=== PATIENT | female | born 1985 | race Caucasian/White ===

== ENCOUNTER → 2017-09-01 | Outpatient (CLI) | payer OTHER ==
[~2017-09-01] MED LIST: ALBUTEROL0.09 MG/A1 INH; BENADRYL25 M1 PO; BIOTIN1 M1 PO; CARAFATE1 GM PO; CLINDAMYCIN HC150 MG PO; Effexor25 MG PO; FLONASE ALLERG9.9 ML NAS; MOTRIN100 M1 PO; PEPCID20 MG PO; PERCOCET 325 MG1 TA2 PO; PREDNICOT20 MG PO; PREDNISONE10 MG PO; PRILOSEC20 M1 PO; PROPRANOLOL HCL40 M1 PO; PROPRANOLOL HCL80 M3 PO; PROTONIX40 MG PO; PROZAC20 MG PO; REMERON15 M2 PO; REXULTI2 MG PO; ROBITUSSIN AC 110 ML PO; SINGULAIR10 MG PO; TOBREX OPHTH S2.5 ML OPH; VICODIN 500 MG-1 TAB PO; VISTARIL50 MG PO; VITAMIN D5000 I3 PO
== END | disposition home or self-care (01) ==
LOC: US 16:10
DX: R10.32 Left lower quadrant pain (principal); R10.2 Pelvic and perineal pain; Z90.710 Acquired absence of both cervix and uterus

== ENCOUNTER 2017-09-15 13:12 | Inpatient (IN) | payer OTHER ==
[~2017-09-15] VITALS: Ht 167.6 cm; Wt 58.5 kg
--- NOTE | ~2017-09-15 | O ---
[place], [place] OPERATIVE NOTE NAME: KATHIE DAUGHERTY UNIT #: [id number] ROOM: 426 DOCTOR: VIANNEY FRANCISCO MD BIRTHDATE: [birth year] DOS: 09/17/2017 HISTORY: This is a 32-year-old patient who presented with chief complaint of gastro-abdominal pain, dyspepsia, undergoing investigation. PAST MEDICAL HISTORY: Gastroesophageal reflux, migraine, cephalalgia, nicotine dependency, endometriosis. PAST SURGICAL HISTORY: Tonsillectomy, adenectomy, myringotomy, and hysterectomy. SOCIAL HISTORY: Smoker. Social alcohol consumer. FAMILY HISTORY: Noncontributory. ALLERGIES: PENICILLIN, LORAZEPAM. MEDICATIONS AT HOME: Reviewed. PROCEDURE: Today's procedure part of investigation is panendoscopy plus biopsy. PREMEDICATION: Versed and propofol. SCOPE: Olympus folding gastroscope REPORT: After putting the patient in left lateral position and application of lubricant to the scope, the scope was introduced. Thereafter under direct visualization, I advanced through the length of esophagus without difficulty. Esophagus, cervical, thoracic and distal within normal limits. Gastric pouch was entered. Gastritis was seen. Duodenal bulb, second and third part within normal limit. Antral biopsy obtained for H. pylori. The patient extubated, tolerated procedure well. IMPRESSION: Mild gastritis, status post biopsy. There are no acute findings in upper GI tract. PLAN AND DISCUSSION: This patient can be discharged on Protonix 40 mg daily and be advised to abstain from caffeinated beverages, alcoholic beverages and nicotine product. I have reviewed her CT scan of the abdomen and no acute pathology has been found in the abdomen with chemistries, CBC, labs and records all have been reviewed. The patient is going to be fed regular diet. [place], [place] OPERATIVE NOTE NAME: KATHIE DAUGHERTY UNIT #: [id number] ROOM: 426 DOCTOR: VIANNEY FRANCISCO MD BIRTHDATE: [birth year] VIANNEY FRANCISCO MD CM:OPRECORD:OPERATIVE NOTE 1418 [id number] VIANNEY FRANCISCO MD 09/17/17 1430 interface
[2017-09-15 13:13] VITALS: BP 145/90
[2017-09-15 14:06] LABS: BASO % 0.5 % (0.0-1.0); HEMATOCRIT 41.9 % (37.0-47.0); LYMPH # 1.4 10*3/uL (1.3-4.4); LYMPH % 21.4 % (27.0-41.0); MEAN CELL VOLUME 101.2 fl (81.0-99.0); MEAN CORPUSCULAR HGB 33.8 pg (27.0-31.0); MEAN CORPUSCULAR HGB CONC 33.4 g/dl (33.0-37.0); MEAN PLATELET VOLUME 10.2 fl (9.6-12.3); MONO # 0.3 10*3/uL (0.1-1.0); NEUT # 4.7 10*3/uL (2.3-7.9); NEUT % 73.8 % (47.0-73.0); PLATELET COUNT AUTOMATED 274 10*3/uL (130-400); RED BLOOD COUNT 4.14 10*6/uL (4.10-5.10); WHITE BLOOD COUNT 6.3 10*3/uL (4.8-10.8)
[2017-09-15 14:21] LABS: ALBUMIN 4.7 gm/dl (3.1-4.5); ALKALINE PHOSPHATASE 77 U/L (45-117); BUN 12 mg/dl (7-24); CHLORIDE 106 mmol/L (98-107); LIPASE 136 U/L (73-393); POTASSIUM 3.7 mmol/L (3.5-5.1); SGOT/AST 23 IU/L (3-35); SGPT/ALT 21 U/L (12-78); SODIUM 138 mmol/L (136-145); TOTAL PROTEIN 8.3 gm/dL (6.4-8.2)
[2017-09-15 14:24] LABS: BETA-HCG, QUANT < 1.0 mIU/mL (1-3)
[2017-09-15 14:24] LABS: BILIRUBIN NEGATIVE (NEGATIVE); BLOOD NEGATIVE (NEGATIVE); CLARITY SL CLOUDY (CLEAR); COLOR YELLOW (YELLOW); GLUCOSE NEGATIVE (NEGATIVE); KETONE NEGATIVE (NEGATIVE); LEUKO ESTERASE NEGATIVE (NEGATIVE); NITRITE NEGATIVE (NEGATIVE); SPECIFIC GRAVITY 1.025 (1.005-1.030); UROBILINOGEN 0.2 E.U./dl (0.2-1.0)
[2017-09-15 14:45] LABS: MUCOUS 1+; RBC 0-2 rbc/hpf (0-2)
[2017-09-15 17:08] VITALS: BP 104/64
[2017-09-15 18:08] VITALS: BP 99/61
[2017-09-15 19:00] VITALS: BP 115/82
[2017-09-15 19:28] VITALS: BP 112/68
[2017-09-15 21:30] VITALS: BP 124/85
[2017-09-15] MEDS ORDERED: OMEPRAZOLE40 MG PO (21:48)
[2017-09-15] MEDS ORDERED: CLARITIN10 MG PO (21:48)
[2017-09-16] VITALS: BP 106/60
[2017-09-16 06:04] LABS: BASO # 0.1 10*3/uL (0.0-0.1); BASO % 1.1 % (0.0-1.0); HEMATOCRIT 36.3 % (37.0-47.0); HEMOGLOBIN 12.1 g/dl (12.0-16.0); LYMPH # 1.9 10*3/uL (1.3-4.4); MEAN CELL VOLUME 103.1 fl (81.0-99.0); MEAN CORPUSCULAR HGB 34.4 pg (27.0-31.0); MEAN CORPUSCULAR HGB CONC 33.3 g/dl (33.0-37.0); MEAN PLATELET VOLUME 10.5 fl (9.6-12.3); MONO # 0.3 10*3/uL (0.1-1.0); NEUT # 2.3 10*3/uL (2.3-7.9); NEUT % 49.7 % (47.0-73.0); PLATELET COUNT AUTOMATED 224 10*3/uL (130-400); RED BLOOD COUNT 3.52 10*6/uL (4.10-5.10); WHITE BLOOD COUNT 4.6 10*3/uL (4.8-10.8)
[2017-09-16 06:29] LABS: ALBUMIN 3.4 gm/dl (3.1-4.5); BUN 9 mg/dl (7-24); CHLORIDE 107 mmol/L (98-107); POTASSIUM 3.8 mmol/L (3.5-5.1); SGOT/AST 15 IU/L (3-35); SGPT/ALT 13 U/L (12-78); SODIUM 141 mmol/L (136-145)
[2017-09-16 06:41] LABS: ALKALINE PHOSPHATASE 54 U/L (45-117); CHOLESTEROL 181 mg/dL (<200); CREATININE 0.77 mg/dL (0.55-1.02); HDL CHOLESTEROL 85 mg/dl (40-60); LDL CHOLESTEROL 72 mg/dL (9-159); PHOSPHOROUS 3.2 mg/dL (2.5-4.9); TOTAL PROTEIN 5.9 gm/dL (6.4-8.2); TRIGLYCERIDES 120 mg/dl (<150); VLDL CHOLESTEROL 24 mg/dL (6-40)
[2017-09-16 08:00] VITALS: BP 127/79
[2017-09-16 08:30] LABS: VITAMIN D, 25-HYDROXY 23.3 ng/mL (30-100)
[2017-09-16 12:00] VITALS: BP 98/66
[2017-09-16 16:00] VITALS: BP 110/77
[2017-09-16 20:00] VITALS: BP 112/84
[2017-09-17] VITALS (10 sets, daily range): BP systolic 99–115; BP diastolic 63–82
[2017-09-17] MEDS ORDERED: NATURE'S BLEND F1 MG PO (17:16)
[2017-09-17] MEDS ORDERED: VITAMIN D31000 UNI1 PO (17:16)
[2017-09-18 00:22] VITALS: BP 92/55
[2017-09-18 08:00] VITALS: BP 108/76
[2017-09-18 12:00] VITALS: BP 101/68; BP 94/53
[2017-09-18 16:00] VITALS: BP 113/63
[2017-09-18 20:00] VITALS: BP 103/70
[2017-09-19] VITALS: BP 111/78
[2017-09-19 07:32] LABS: BASO # 0.1 10*3/uL (0.0-0.1); EOS % 0.2 % (1.0-4.0); HEMATOCRIT 37.8 % (37.0-47.0); HEMOGLOBIN 12.5 g/dl (12.0-16.0); LYMPH # 1.7 10*3/uL (1.3-4.4); LYMPH % 33.7 % (27.0-41.0); MEAN CELL VOLUME 102.4 fl (81.0-99.0); MEAN CORPUSCULAR HGB 33.9 pg (27.0-31.0); MEAN CORPUSCULAR HGB CONC 33.1 g/dl (33.0-37.0); MEAN PLATELET VOLUME 10.4 fl (9.6-12.3); MONO # 0.4 10*3/uL (0.1-1.0); MONO % 7.4 % (3.0-9.0); NEUT # 2.9 10*3/uL (2.3-7.9); NEUT % 57.5 % (47.0-73.0); PLATELET COUNT AUTOMATED 216 10*3/uL (130-400); RED BLOOD COUNT 3.69 10*6/uL (4.10-5.10); WHITE BLOOD COUNT 5.1 10*3/uL (4.8-10.8)
[2017-09-19 07:33] LABS: CREATININE 0.91 mg/dL (0.55-1.02)
[2017-09-19 08:00] VITALS: BP 97/63
[2017-09-19 09:29] LABS: ALBUMIN 3.7 gm/dl (3.1-4.5); ALKALINE PHOSPHATASE 54 U/L (45-117); BUN 10 mg/dl (7-24); CHLORIDE 105 mmol/L (98-107); POTASSIUM 4.2 mmol/L (3.5-5.1); SGOT/AST 75 IU/L (3-35); SGPT/ALT 58 U/L (12-78); SODIUM 141 mmol/L (136-145); TOTAL PROTEIN 6.4 gm/dL (6.4-8.2)
[2017-09-19 12:00] VITALS: BP 97/57
[2017-09-19 16:00] VITALS: BP 100/65
[2017-09-19 20:00] VITALS: BP 113/88
[2017-09-20] VITALS: BP 117/85
[2017-09-20 07:08] LABS: ALBUMIN 4.2 gm/dl (3.1-4.5); BUN 12 mg/dl (7-24); CHLORIDE 101 mmol/L (98-107); POTASSIUM 4.2 mmol/L (3.5-5.1); SGOT/AST 92 IU/L (3-35); SGPT/ALT 87 U/L (12-78); SODIUM 140 mmol/L (136-145)
[2017-09-20 07:10] LABS: ALKALINE PHOSPHATASE 68 U/L (45-117); TOTAL PROTEIN 7.3 gm/dL (6.4-8.2)
[2017-09-20 08:00] VITALS: BP 94/54
[2017-09-20] MEDS ORDERED: REGLAN5 MG PO (12:01)
== END 2017-09-20 13:43 | disposition home or self-care (01) | DRG 392 ==
LOC: ED 13:12 → EDHOLD 19:08 → 4E 19:08
PROVIDERS: Emergency Medicine; Internal Medicine; Internal Medicine Hospice and Palliative Medicine; Student in an Organized Health Care Education/Training Program
PROC: 0DB68ZX Excision of Stomach, Via Natural or Artificial Opening Endoscopic, Diagnostic (ICD-10-PCS; principal; 2017-09-17)
DX: K29.00 Acute gastritis without bleeding (principal); E83.41 Hypermagnesemia; D75.89 Other specified diseases of blood and blood-forming organs; E88.09 Other disorders of plasma-protein metabolism, not elsewhere classified; N30.10 Interstitial cystitis (chronic) without hematuria; G43.909 Migraine, unspecified, not intractable, without status migrainosus; K21.9 Gastro-esophageal reflux disease without esophagitis; F17.210 Nicotine dependence, cigarettes, uncomplicated; D72.810 Lymphocytopenia; E53.8 Deficiency of other specified B group vitamins; J30.2 Other seasonal allergic rhinitis; Z79.899 Other long term (current) drug therapy; Z71.6 Tobacco abuse counseling; Z88.0 Allergy status to penicillin; Z88.8 Allergy status to other drugs, medicaments and biological substances; Z90.710 Acquired absence of both cervix and uterus; Z81.8 Family history of other mental and behavioral disorders

== ENCOUNTER → 2017-11-24 | Outpatient (CLI) | payer OTHER ==
[~2017-11-24] MED LIST changes: +CIPRO500 MG PO; +CLARITIN10 MG PO; +IBUPROFEN600 MG PO; +NATURE'S BLEND F1 MG PO; +OMEPRAZOLE40 MG PO; +PYRIDIUM200 M1 PO; +REGLAN5 MG PO; +VITAMIN D31000 UNI1 PO
== END | disposition home or self-care (01) ==
LOC: US 09:21
DX: M54.9 Dorsalgia, unspecified (principal); D64.9 Anemia, unspecified; R10.2 Pelvic and perineal pain; N94.9 Unspecified condition associated with female genital organs and menstrual cycle; Z90.710 Acquired absence of both cervix and uterus

== ENCOUNTER → 2020-07-15 | Outpatient (CLI) | payer OTHER | END | disposition home or self-care (01) | LOC: COVID19 13:36 | PROVIDERS: ATTEND Family Medicine | DX: R09.81 Nasal congestion (principal); R05 Cough; R53.83 Other fatigue; Z20.822 Contact with and (suspected) exposure to COVID-19 ==

== ENCOUNTER → 2020-08-22 | Outpatient (CLI) | payer OTHER ==
[2020-08-22 08:39] LABS: HEMATOCRIT 37.8 % (37.0-47.0); MEAN CELL VOLUME 99.2 fl (81.0-99.0); MEAN CORPUSCULAR HGB CONC 32.3 g/dl (33.0-37.0); MEAN PLATELET VOLUME 10.1 fl (9.6-12.3); RED BLOOD COUNT 3.81 10*6/uL (4.10-5.10); RED CELL DISTRI WIDTH 12.7 % (0-14.5); WHITE BLOOD COUNT 5.3 10*3/uL (4.8-10.8)
[2020-08-22 09:00] LABS: ALBUMIN 4.1 gm/dl (3.1-4.5); ALKALINE PHOSPHATASE 58 U/L (45-117); BUN 13 mg/dl (7-24); CHLORIDE 110 mmol/L (98-107); CPK 122 U/L (26-192); CREATININE 0.79 mg/dL (0.55-1.02); POTASSIUM 4.3 mmol/L (3.5-5.1); SGOT/AST 17 IU/L (3-35); SGPT/ALT 28 U/L (12-78); SODIUM 141 mmol/L (136-145); TOTAL PROTEIN 7.1 gm/dL (6.4-8.2)
[2020-08-23 05:06] LABS: RHEUMATOID ARTHRITIS FACTOR <10.0 IU/mL (0.0-13.9)
== END | disposition home or self-care (01) ==
LOC: LAB 08:08
PROVIDERS: ATTEND Family Medicine
DX: M54.9 Dorsalgia, unspecified (principal); M79.10 Myalgia, unspecified site; M25.50 Pain in unspecified joint